=== PATIENT | female | born 1990 | race Caucasian/White ===

== ENCOUNTER 2016-09-04 12:55 | Inpatient (IN) | payer OTHER ==
[~2016-09-04 12:55] MED LIST: BALANCED B PO; BENADRYL25 MG/TA1 PO; COLACE100 M1; IBUPROFEN800 M1 PO; IRON 100 PLUS1 EACH; PERCOCET 5-3251 EACH PO; PRENATAL MULTI1 EAC5 PO; PROBIOTIC1 EA10 PO; PROCARDIA10 M1 PO; VISTARIL50 M1 PO
[2016-09-04 14:33] LABS: BASO % 0.2 % (0-2); EOS % 0.9 % (0-7); EOSINOPHIL ABSOLUTE COUNT 0.1 tho/cmm (0.0-0.7); HCT-HEMATOCRIT 38.8 % (34.0-49.0); HGB-HEMOGLOBIN 13.9 gm/dl (12.0-15.5); IMMATURE GRANULOCYTES ABSOLUTE 0.13 tho/cmm (0-0.03); LYMPH % 19.8 % (20-45); LYMPH ABSOLUTE COUNT 2.6 tho/cmm (0.8-4.5); MCH (MEAN CORPUSCULAR HGB) 34.3 pg (28.0-32.0); MCHC MEAN CORPUSCULAR HGB CONC 35.8 % (32.0-36.0); MCV (MEAN CELL VOLUME) 95.8 fl (82.0-96.0); MEAN PLATELET VOLUME 9.5 cmc (9.4-12.4); MONO % 9.7 % (0-12); MONOCYTE ABSOLUTE COUNT 1.3 tho/cmm (0.0-1.2); NEUTROPHIL ABSOLUTE COUNT 8.9 tho/cmm (1.6-8.0); NEUTROPHIL-AUTOMATED 8.9 tho/cmm (1.6-8.0); NEUTROPHILS % 68.4 % (40-80); PLATELET COUNT 233 tho/cmm (150-450); RED BLOOD COUNT 4.05 mil/cmm (4.00-5.20); RED CELL DISTRIBUTION WIDTH 13.1 % (12.4-16.4); WHITE BLOOD COUNT 13.1 tho/cmm (4.0-10.0)
[2016-09-04 14:56] LABS: ALB/GLOB RATIO 1.1 (0.8-2.0); ALBUMIN 3.5 g/dl (3.7-5.1); ALKALINE PHOSPHATASE 176 U/L (35-104); ALT/SGPT 11 U/L (0-33); ANION GAP 14 mmol/L (5-15); AST/SGOT 17 U/L (0-32); BILIRUBIN,TOTAL 0.3 mg/dl (0-1.0); BLOOD UREA NITROGEN 6 mg/dl (6-25); CALCIUM 9.2 mg/dl (8.6-10.2); CARBON DIOXIDE-VENOUS 21 mmol/L (22-29); CHLORIDE 101 mmol/L (98-110); CREATININE 0.52 mg/dl (0.67-1.17); GLUCOSE 74 mg/dl (65-120); POTASSIUM 3.6 mmol/L (3.4-5.0); SODIUM 136 mmol/L (135-146); eGFR VALUE FOR BLACK >60 mL/Min
[2016-09-05 07:07] LABS: BASO % 0.1 % (0-2); EOS % 0.1 % (0-7); HCT-HEMATOCRIT 33.8 % (34.0-49.0); HGB-HEMOGLOBIN 11.9 gm/dl (12.0-15.5); IMMATURE GRANULOCYTES ABSOLUTE 0.12 tho/cmm (0-0.03); IMMATURE GRANULOCYTES PERCENT 0.6 % (0-0.3); LYMPH % 14.8 % (20-45); LYMPH ABSOLUTE COUNT 2.8 tho/cmm (0.8-4.5); MCH (MEAN CORPUSCULAR HGB) 33.2 pg (28.0-32.0); MCHC MEAN CORPUSCULAR HGB CONC 35.2 % (32.0-36.0); MCV (MEAN CELL VOLUME) 94.4 fl (82.0-96.0); MEAN PLATELET VOLUME 9.5 cmc (9.4-12.4); MONO % 9.9 % (0-12); MONOCYTE ABSOLUTE COUNT 1.9 tho/cmm (0.0-1.2); NEUTROPHIL ABSOLUTE COUNT 14.1 tho/cmm (1.6-8.0); NEUTROPHIL-AUTOMATED 14.1 tho/cmm (1.6-8.0); NEUTROPHILS % 74.5 % (40-80); PLATELET COUNT 221 tho/cmm (150-450); RED BLOOD COUNT 3.58 mil/cmm (4.00-5.20); WHITE BLOOD COUNT 18.9 tho/cmm (4.0-10.0)
[2016-09-05 07:22] LABS: ALB/GLOB RATIO 0.8 (0.8-2.0); ALBUMIN 2.5 g/dl (3.7-5.1); ALKALINE PHOSPHATASE 133 U/L (35-104); ALT/SGPT 10 U/L (0-33); ANION GAP 12 mmol/L (5-15); AST/SGOT 16 U/L (0-32); BILIRUBIN,TOTAL 0.2 mg/dl (0-1.0); BLOOD UREA NITROGEN 5 mg/dl (6-25); CALCIUM 8.1 mg/dl (8.6-10.2); CARBON DIOXIDE-VENOUS 19 mmol/L (22-29); CHLORIDE 102 mmol/L (98-110); CREATININE 0.51 mg/dl (0.67-1.17); GLUCOSE 96 mg/dl (65-120); POTASSIUM 3.9 mmol/L (3.4-5.0); SODIUM 133 mmol/L (135-146); eGFR VALUE FOR BLACK >60 mL/Min
[2016-09-07] MEDS ORDERED: PERCOCET 5-3251 EACH PO (09:01)
[2016-09-07] MEDS ORDERED: IBUPROFEN800 M1 PO (09:02)
== END 2016-09-07 13:25 | DRG 766 ==
LOC: LDR 12:55 → OBGD 19:40 → OBGE 09-05 11:00
PROVIDERS: Specialist; ADMIT Obstetrics & Gynecology
PROC: 10D00Z1 Extraction of Products of Conception, Low, Open Approach (ICD-10-PCS; principal; 2016-09-05)
PROC: 10907ZC Drainage of Amniotic Fluid, Therapeutic from Products of Conception, Via Natural or Artificial Opening (ICD-10-PCS; principal; 2016-09-05)
DX: O34.211 Maternal care for low transverse scar from previous cesarean delivery (principal); O16.4 Unspecified maternal hypertension, complicating childbirth; N85.8 Other specified noninflammatory disorders of uterus; Z3A.38 38 weeks gestation of pregnancy; Z37.0 Single live birth
CPT/HCPCS: J1580; J2590